=== PATIENT | female | born 1965 | race Caucasian/White ===

== ENCOUNTER 2017-04-05 10:10 | Emergency (ER) | payer MEDICAID ==
[~2017-04-05] VITALS: Wt 65.9 kg
[~2017-04-05 10:10] MED LIST: GUAI118L94 PO; IBUP-1542 PO; SODI44SP11 NS
[2017-04-05] MEDS ORDERED: morphine 4 MG/ML VIAL IM STA (12:10)
[2017-04-05] MEDS ORDERED: ACETAMINOPHEN 325 MG TAB PO ONE (12:30)
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
[2017-04-05] MEDS ORDERED: METH500T PO (14:04)
[2017-04-05] MEDS ORDERED: NAPR-688 PO (14:04)
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
== END 2017-04-05 14:54 | disposition home or self-care (01) ==
LOC: FTE 10:10
DX: S86.812A Strain of other muscle(s) and tendon(s) at lower leg level, left leg, initial encounter (principal); S09.90XA Unspecified injury of head, initial encounter; V49.40XA Driver injured in collision with unspecified motor vehicles in traffic accident, initial encounter
CPT/HCPCS: 72072; 96372; J2270; Z7502; Z7610

== ENCOUNTER 2017-05-20 12:18 | Emergency (ER) | END 2017-05-20 14:12 | disposition home or self-care (01) ==

== ENCOUNTER 2017-07-04 10:21 | Emergency (ER) | END 2017-07-04 14:12 | disposition home or self-care (01) ==